=== PATIENT | male | born 1990 | race Caucasian/White ===

== ENCOUNTER 2018-11-05 14:04 | Emergency (ER) | payer BC ==
[2018-11-05 14:25] VITALS: O2SAT 97
[2018-11-05] MEDS ORDERED: IBUPROFEN 200 MG TAB PO ONE (14:32)
[2018-11-05] MEDS ORDERED: AMOXICILLIN & POT CLAVULANATE 875 MG TAB PO ONE (14:33)
--- NOTE | 2018-11-05 14:36 | ED.PDOC ---
History of Present Illness - General Chief Complaint: Dental/Mouth Stated Complaint: Pt states R lower tooth pain Time Seen by Provider: 11/05/18 14:32 Source: patient Exam Limitations: no limitations - History of Present Illness Initial Comments: the patient is a 27-year-old male presenting after 2-3 days of pain near the angle of the right side of the jaw. No definite fevers. Mild swelling. He does cause pain when he bites down. He does have inflammation surrounding the gum of the wisdom tooth on the right lower. No obvious abscess. No definite parotid gland swelling. Severity: moderate Improving Factors: nothing Worsening Factors: nothing Associated Symptoms: denies symptoms Allergies/Adverse Reactions: Allergies NO KNOWN ALLERGY Allergy (Unverified 11/05/18 14:25) Home Medications: Ambulatory Orders Amoxicillin & Pot Clavulanate [Augmentin Tab] 875 mg PO BID #14 tab 11/05/18 Review of Systems - Review of Systems Constitutional: States: no symptoms reported EENTM: States: see HPI Respiratory: States: no symptoms reported Cardiology: States: no symptoms reported Gastrointestinal/Abdominal: States: no symptoms reported Genitourinary: States: no symptoms reported Musculoskeletal: States: no symptoms reported Skin: States: no symptoms reported Neurological: States: no symptoms reported All other Systems: No Change from Baseline Past Medical History (General) - Patient Medical History Hx Seizures: No Hx Stroke: No Hx Dementia: No Hx Asthma: No Hx of COPD: No Hx Cardiac Disorders: No Hx Congestive Heart Failure: No Hx Pacemaker: No Hx Hypertension: No Hx Thyroid Disease: No Hx Diabetes: No Hx Gastroesophageal Reflux: No Hx Renal Disease: No Hx Cancer: No Hx of HIV: No Hx Hepatitis C: No Hx MRSA: No Surgical History: no surgical history - Vaccination History Hx Tetanus, Diphtheria Vaccination: Yes Hx Influenza Vaccination: No Hx Pneumococcal Vaccination: No - Social History Hx Tobacco Use: No Hx Chewing Tobacco Use: Yes Hx Alcohol Use: Yes - Not current Hx Substance Use: No Hx Substance Use Treatment: No Hx Depression: No Hx Physical Abuse: No Hx Emotional Abuse: No Hx Suspected Abuse: No - Female History Patient is a Female of Child Bearing Age (10 -59 yrs old): No Patient : No Family Medical History - Family History Mother Family History: Unknown Hx Family;Other: thyroid cancer Father Hx Family Diabetes: Yes Physical Exam - Physical Exam General Appearance: Alert, Comfortable, No apparent distress Eye Exam: bilateral normal Ears, Nose, Throat: hearing grossly normal, other - ee history of present illness Neck: full range of motion, supple Respiratory: normal breath sounds, no respiratory distress Cardiovascular/Chest: normal peripheral pulses, no edema Peripheral Pulses: radial,right: 2+, radial,left: 2+ Gastrointestinal/Abdominal: other - bese Rectal Exam: deferred Extremity: normal range of motion, no pedal edema, normal capillary refill 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 Motrin can be used for discomfort. He'll be placed on Augmentin for the next 7 days. If this is not improving over the next few days then he does need to see a dentist as he may need to have that most posterior tooth removed. Departure - Departure Clinical Impression: Pain, dental Disposition: Discharge to Home or Self Care Condition: Fair Departure Forms: ED Discharge - Pt. Copy, Patient Portal Self Enrollment Instructions: DI for Dental Pain Diet: regular diet Activity: increase activity as tolerated Prescriptions: Amoxicillin & Pot Clavulanate [Augmentin Tab] 875 mg PO BID #14 tab Home Medications: Ambulatory Orders Amoxicillin & Pot Clavulanate [Augmentin Tab] 875 mg PO BID #14 tab 11/05/18 Additional Instructions: the patient's 19-year-old male presenting with dental pain from what is most likely an infection in/or surrounding his right lower wisdom tooth. Motrin can be used for discomfort. He'll be placed on Augmentin for the next 7 days. If this is not improving over the next few days then he does need to see a dentist as he may need to have that most posterior tooth removed.
[2018-11-05 14:59] VITALS: BP 131/72; TEMP 97.8
== END 2018-11-05 14:50 | disposition home or self-care (01) ==
LOC: ER 14:04
DX: K08.89 Other specified disorders of teeth and supporting structures (principal); Z87.891 Personal history of nicotine dependence

== ENCOUNTER 2018-11-07 18:29 | Emergency (ER) | payer BC ==
[2018-11-07] MEDS ORDERED: KETOROLAC TROMETHAMINE INJ 60 MG/2 ML VIAL IM ONE (18:49)
[2018-11-07] MEDS ORDERED: ACETAMINOPHEN W/COD #3 TAB (ER Disp) PO ONE (18:49)
--- NOTE | 2018-11-07 18:52 | ED.PDOC ---
History of Present Illness - General Chief Complaint: Dental/Mouth Stated Complaint: pain after having wisdom teeth pulled Time Seen by Provider: 11/07/18 18:49 Source: patient, family Exam Limitations: no limitations - History of Present Illness Initial Comments: Patient is here with severe pain in his mouth. Patient had wisdom teeth removed today and was sent home without any pain medication. Patient could only manage one IBU 200mg 4 hours ago but it was not sufficient for pain. Patient has no other complaints. said he was hurting so bad she was worried that he would pass out. No LOC, no fever, no chills. Timing/Duration: abrupt, other Severity: severe EENT Location: dental Prearrival Treatment: over the counter meds - only was able to take one 200 mg IBU 4 hours ago Improving Factors: nothing Worsening Factors: eating, movement Associated Symptoms: denies symptoms Allergies/Adverse Reactions: Allergies NO KNOWN ALLERGY Allergy (Unverified 11/05/18 14:25) Home Medications: Ambulatory Orders Amoxicillin & Pot Clavulanate [Augmentin Tab] 875 mg PO BID #14 tab 11/05/18 Review of Systems - Review of Systems Constitutional: States: no symptoms reported EENTM: States: see HPI, mouth pain Respiratory: States: no symptoms reported Cardiology: States: no symptoms reported Gastrointestinal/Abdominal: States: no symptoms reported Past Medical History (General) - Patient Medical History Hx Seizures: No Hx Stroke: No Hx Dementia: No Hx Asthma: No Hx of COPD: No Hx Cardiac Disorders: No Hx Congestive Heart Failure: No Hx Pacemaker: No Hx Hypertension: No Hx Thyroid Disease: No Hx Diabetes: No Hx Gastroesophageal Reflux: No Hx Renal Disease: No Hx Cancer: No Hx of HIV: No Hx Hepatitis C: No Hx MRSA: No Surgical History: no surgical history - Vaccination History Hx Tetanus, Diphtheria Vaccination: Yes Hx Influenza Vaccination: No Hx Pneumococcal Vaccination: No - Social History Hx Tobacco Use: No Hx Chewing Tobacco Use: Yes Hx Alcohol Use: Yes - Not current Hx Substance Use: No Hx Substance Use Treatment: No Hx Depression: No Hx Physical Abuse: No Hx Emotional Abuse: No Hx Suspected Abuse: No - Female History Patient : No Family Medical History - Family History Mother Family History: Unknown Hx Family;Other: thyroid cancer Father Family History: Unknown Hx Family Diabetes: Yes Physical Exam - Physical Exam General Appearance: Alert, Comfortable, No apparent distress Throat Exam: normal mouth inspection - bilateral lower jaw with mild bleeding from site of removed teeth Progress - Results/Orders Results/Orders: pain with recent dental procedure. Toradol here and can take liquid Tylenol and IBU at home as well as Tylenol # 3 to be given for the next 24 hours. Patient should return to Er for increase in pain, change in LOC Departure - Departure Clinical Impression: Acute pain of mouth Disposition: Discharge to Home or Self Care Condition: Good Departure Forms: ED Discharge - Pt. Copy, Patient Portal Self Enrollment Instructions: DI for Mouth Pain Home Medications: Ambulatory Orders Amoxicillin & Pot Clavulanate [Augmentin Tab] 875 mg PO BID #14 tab 11/05/18 Additional Instructions: Toradol here and can take liquid Tylenol and IBU at home as well as Tylenol # 3 to be given for the next 24 hours. Patient should return to Er for increase in pain, change in LOC
[2018-11-07 19:01] VITALS: BP 146/95; TEMP 97.7; O2SAT 98
== END 2018-11-07 19:13 | disposition home or self-care (01) ==
LOC: ER 18:29
DX: K08.89 Other specified disorders of teeth and supporting structures (principal); K08.109 Complete loss of teeth, unspecified cause, unspecified class; Z98.890 Other specified postprocedural states; Z87.891 Personal history of nicotine dependence